=== PATIENT | female | born 1945 | race Caucasian/White ===

== ENCOUNTER 2018-04-06 07:30 | Day surgery (SDC) | payer MEDICARE, OTHER ==
--- NOTE | 2018-04-06 06:35 | History and Physical - Ferro ---
CHIEF COMPLAINT/HISTORY OF CHIEF COMPLAINT: This patient presents with a history of an intractable lumbar radiculopathy. Due to the failure of therapy a spinal cord stimulator trial was conducted on 03/14/18 with a result of 75+% pain control. Due to the failure of all therapy and the success of the trial, the patient presents today for implantation of a permanent system. PAST MEDICAL HISTORY: Hypertension. PAST SURGICAL HISTORY: List to be provided. EMPLOYMENT STATUS: Retired. MEDICATIONS ON ADMISSION: List to be provided. ALLERGIES: ANTIBIOTICS. FAMILY/PSYCHOSOCIAL HISTORY: Social history - Caffeine. Family history - Diabetes, hypertension, and cancer. SYSTEMS REVIEW: The patient seems appropriate in no acute distress. The remainder of the systems review is positive for essential tremors, blood pressure, and degenerative arthritis. PHYSICAL EXAMINATION: Height is 5'4", weight is 215. No vital signs. HEENT: Within normal limits. LUNGS: Clear. HEART: Rapid and regular. ABDOMEN: Nontender. MUSCULOSKELETAL: Examination of the musculoskeletal system shows diffuse tenderness through the lumbar spine. Range of motion does produce pain into both legs across the back surface. Ambulation - No assistive device is utilized. Motor and sensory field evaluation shows no sensory deficits, no motor weakness. There is no assistive device required. NEUROLOGIC: Cranial nerves are intact. IMPRESSION: LUMBAR RADICULOPATHY, ICD-10 CODE M54.16 AND M54.17. PLAN: The patient is here for implant of a spinal cord stimulator after successful trial and the failure of all other therapies. The procedure will be considered outpatient although an overnight stay will be evaluated. JOB NUMBER: [id number] [facility]
[~2018-04-06 07:30] MED LIST: ACETAMINOPHEN 1,000 MG/100 ML BTL IV ONE; CEFAZOLIN 2 Gram 2 GM/50 ML BAG IVPB ONE; FAMOTIDINE 20MG TABLET PO ONE; MECLIZINE 25 MG TABLET PO ONE; METOCLOPRAMIDE 10 MG TABLET PO ONE
[2018-04-06] MEDS ORDERED: MIDAZOLAM HCL 2MG/2ML VIAL IV ONE (07:31)
[2018-04-06] MEDS ORDERED: OXYCODONE/APAP 10MG-325MG TABLET PO ONE (07:31)
[2018-04-06] MEDS ORDERED: 0.9 % SODIUM CHLORIDE 10 ML VIAL IVP ONE (07:31)
[2018-04-06] MEDS ORDERED: FENTANYL PF 100MCG/2ML VIAL IV ONE (07:31)
[2018-04-06] MEDS ORDERED: CEFAZOLIN 1G VIAL IM ONE (07:31)
[2018-04-06] MEDS ORDERED: BUPIVACAINE 0.5% W/EPI MPF 30 ML VIAL IVP ONE (07:31)
[2018-04-06] MEDS ORDERED: PROPOFOL 10 MG/ML VIAL IV ONE (07:31)
[2018-04-06] MEDS ORDERED: LIDOCAINE 2% MDV (20MG/ML) 20ML VIAL IV ONE (07:31)
[2018-04-06] MEDS ORDERED: LIDOCAINE 1% W/EPI 1:200,000 MPF 30ML SQ ONE (07:31)
--- NOTE | 2018-04-07 08:38 | RADIOLOGY REPORT ---
EXAM: THORACIC SPINE HISTORY: PAIN PUMP PLACEMENT. TECHNIQUE: A single AP view of the thoracic spine was performed. FINDINGS: The pain pump stimulator tip is at the T5-T6 level. IMPRESSION: THE PAIN PUMP STIMULATOR TIP IS AT THE T5-T6 LEVEL. JOB NUMBER: [id number] MTDD
--- NOTE | 2018-04-07 20:55 | Operative Note ---
DATE OF SURGERY: 04/06/2018 PREOPERATIVE DIAGNOSIS: INTRACTABLE LUMBAR RADICULOPATHY, ICD-10 CODE = M54.16 AND M54.17. SURGERY: 1. FLUOROSCOPIC-GUIDED EPIDURAL ACCESS LEFT T11-12, PLACEMENT OF SPINAL CORD STIMULATOR LEAD 1, A [employer] IN[employer] 16 WITH 6 ELECTRODES POSITIONED LEFT AT T6. 2. FLUOROSCOPIC-GUIDED EPIDURAL ACCESS LEFT T12-L1, PLACEMENT OF SPINAL CORD STIMULATOR LEAD 2, A [employer] INFINION 16 WITH 6 ELECTRODES POSITIONED RIGHT AT T6. 3. COMPLEX PROGRAMMING OF LEAD 1 OVER 20 MINUTES FOLLOWED BY COMPLEX PROGRAMMING OF LEAD 2 OVER 20 MINUTES. 4. INCISION, SUBCUTANEOUS DISSECTION, AND ANCHORING OF LEAD 1 AND LEAD 2 TO SUPRASPINOUS FASCIA WITH A [employer] LOCKING ANCHOR. 5. INCISION, SUBCUTANEOUS DISSECTION, AND CREATION OF SUBCUTANEOUS POUCH RIGHT POSTERIOR GLUTEAL MARGIN FOR PLACEMENT OF GENERATOR, IDENTIFIED [employer] PROGRAMMABLE, RECHARGEABLE WAVEWRITER. 6. TUNNELING BETWEEN POUCHES. PLACEMENT OF EXTERNAL PORTION OF LEAD 1 AND LEAD 2 INTO GENERATOR POUCH, EACH LEAD INTERFACED TO GENERATOR. 7. CLOSURE OF MIDLINE INCISION USING STRATAFIX SUTURE, #2-0 FASCIA AND #3-0 SKIN, USING STRATAFIX SUTURE AT RIGHT POSTERIOR GLUTEAL MARGIN, #2-0 FASCIA AND #3-0 SKIN. DERMABOND CLOSURE. 8. COMPLEX RECOVERY ROOM PROGRAMMING INTERNAL GENERATOR HOME USE, TWO STIMULATORS, 20 MINUTES. SURGEON: MILENA BYRD D.O. ANESTHESIA: LOCAL SEDATION. ARNAV DUCKWORTH CRNA. INDICATIONS: This patient presents with a history of intractable lumbar radiculopathy. Due to the failure of therapies, a stimulator trial was conducted with 75% to 85% pain control. Due to the failure of other therapy and the success of the trial, the patient presents today for implantation of a permanent system. SURGERY: Intravenous line, vital sign monitoring, IV sedation, prepped and draped sterile technique, under imaging, the epidural interspace from the left at 11-12 and 12-1 were both marked and infiltrated. Using separate curved access Epimed needles with a [id number], the space was accessed. At 11- 12, spinal cord stimulator lead 1, a [employer] Infinion 16 with 6 electrodes position left of midline at T6. With the epidural access at 12-1, spinal cord stimulator lead 2, a [employer] Infinion 16 with 6 electrodes was positioned right at T6. Complex programming of lead 1 over 20 minutes followed by complex programming of lead 2 over 20 minutes resulting in complete patterns of stimulation across the back and into the legs. The patient indicating we had all the areas of the pain. The skin above and below both needles was then infiltrated and an incision made and subcutaneous dissection was conducted to the supraspinous fascia. The needles were removed and then each lead was anchored to the supraspinous fascia with a [employer] locking anchor. At the right posterior gluteal margin, a site picked by the patient for the generator, skin infiltrated, incision made and subcutaneous dissection was conducted to form a pouch of suitable size and depth for the generator. Antibiotic irrigation and Bovie for hemostasis. A tunneling tool was used to carry the leads into the generator pouch and then each lead was interfaced with the generator, a [employer] [place] [email or web address] programmable, rechargeable WaveWriter. Antibiotic irrigation and Bovie for hemostasis. The generator was placed into the pouch. The leads were placed into their own pouch and then both incisions were closed using STRATAFIX suture, #2-0 for fascia and #3-0 for skin. Dermabond closure approximating the edges of both wounds. The patient was transported to the Recovery Room stable. No side-effects from the procedure or the sedation. When fully awake and alert, complex programming of the generator performed over 20 minutes, reestablishing stimulation and pain control to all the appropriate areas. The patient was then instructed on the use of the system and, by her request, prepared for discharge. DISCHARGE INSTRUCTIONS: 1. The sites will remain clean and dry. No showering or bathing in any way that would disrupt dressings. If it happens, contact the Clinic. 2. Standard medications resumed, including the antibiotic Levaquin 500 mg once a day for 14 days. Substitution with Keflex 500 mg four times a day will be provided. 3. The office will contact the patient in 12 to 24 hours to set up a time in 7 to 10 days to evaluate the sites. Until then, she is to keep her activities low. All other instructions provided, numbers to contact if problems given. She was then discharged. She should be monitoring the sites. Do not pull the Dermabond dressing off. Do not replace the Dermabond. If it comes off and the incision is exposed, she should contact the Clinic. cc: Dr. Li JOB NUMBER: [id number] [facility]
== END 2018-04-06 11:15 | disposition home or self-care (01) ==
LOC: SUR 07:30
PROVIDERS: ATTEND Pain Medicine Interventional Pain Medicine
DX: M54.16 Radiculopathy, lumbar region (principal); M54.17 Radiculopathy, lumbosacral region; I10 Essential (primary) hypertension; E78.00 Pure hypercholesterolemia, unspecified; C50.919 Malignant neoplasm of unspecified site of unspecified female breast; E11.9 Type 2 diabetes mellitus without complications; G25.81 Restless legs syndrome
CPT/HCPCS: 63650; 63685; 01936; 95972; 72020; J3010; J0690; C1820; C1883

== ENCOUNTER 2018-07-20 07:48 | Day surgery (SDC) | payer MEDICARE, OTHER ==
[~2018-07-20 07:48] MED LIST changes: -ACETAMINOPHEN 1,000 MG/100 ML BTL IV ONE; -CEFAZOLIN 2 Gram 2 GM/50 ML BAG IVPB ONE
[2018-07-20] MEDS ORDERED: LIDOCAINE 2% MDV (20MG/ML) 20ML VIAL IV ONE (07:49)
[2018-07-20] MEDS ORDERED: MIDAZOLAM HCL 2MG/2ML VIAL IV ONE (07:49)
[2018-07-20] MEDS ORDERED: ONDANSETRON HCL IV 4 MG/2 ML VIAL IVP ONE (07:49)
[2018-07-20] MEDS ORDERED: FENTANYL PF 100MCG/2ML VIAL IV ONE (07:49)
[2018-07-20] MEDS ORDERED: PROPOFOL 10 MG/ML VIAL IV ONE (07:49)
[2018-07-20] MEDS ORDERED: RINGERS SOLUTION,LACTATED 1,000 ML IV ONE (08:29)
[2018-07-20] MEDS ORDERED: RINGERS SOLUTION,LACTATED 350 ML IV ONE (08:39)
[2018-07-20] MEDS ORDERED: LIDOCAINE 1% W/EPI 1:100,000 MDV 20 ML VIAL SQ ONE (09:18)
[2018-07-20] MEDS ORDERED: BUPIVACAINE 0.5% W/EPI MPF 30 ML VIAL SQ ONE (09:19)
[2018-07-20] MEDS ORDERED: DEXAMETHASONE PRESERVATIVE FREE 10MG/ML VIAL SQ ONE (09:19)
--- NOTE | 2018-07-21 11:20 | Operative Note ---
DATE OF SURGERY: 07/20/2018 PREOPERATIVE DIAGNOSIS: Cervical spondylosis without myelopathy, ICD10 code M47.812. OPERATION: Radiofrequency rhizotomy of bilateral cervical facets 4-5, 5-6, 6-7. INDICATIONS: This patient presents with primary neck pain. Examination shows tenderness of the cervical spine. Range of motion does cause pain to the neck with extension. Diagnostic imaging shows extensive end plate spring osteophytic formations. Previous facet series 75% relief. Due to the failure of therapy and the success of the facet series, the patient presents for rhizotomy for more long-term relief. PROCEDURE: Intravenous line, vital sign monitoring, IV sedation, prepped and draped in sterile technique. Under imaging, cervical facets at 4-5, 5-6, 6-7 were identified and marked bilaterally. Skin infiltrated. A 20-gauge rhizotomy cannula positioned. Stimulation trials conducted. Rhizotomy burn performed. Local with antiinflammatory into sites. Topical antibiotic and sterile dressing applied. Will monitor and evaluate. CC: Dr. Guillermo TORREZ
== END 2018-07-20 10:14 | disposition home or self-care (01) ==
LOC: SUR 07:48
PROVIDERS: ATTEND Pain Medicine Interventional Pain Medicine
DX: M47.812 Spondylosis without myelopathy or radiculopathy, cervical region (principal); I10 Essential (primary) hypertension; E11.9 Type 2 diabetes mellitus without complications; K21.9 Gastro-esophageal reflux disease without esophagitis; C50.919 Malignant neoplasm of unspecified site of unspecified female breast; R25.1 Tremor, unspecified; G25.81 Restless legs syndrome
CPT/HCPCS: 64633; 64634 ×2; 01936; 36416; 82948; J2405; J1100; J3010; J7120

== ENCOUNTER 2018-12-28 08:37 | Day surgery (SDC) | payer MEDICARE, OTHER ==
--- NOTE | 2018-12-28 06:59 | History and Physical - Ferro ---
CHIEF COMPLAINT/HISTORY OF CHIEF COMPLAINT: This patient presents with a history of intractable lumbar radiculopathy. Due to the failure of all therapies a spinal cord stimulator trial was conducted with implantation of a permanent system on 03/25/18 and although initially the system appeared to be working well it has gradually failed. Her pattern of pain is a combination of both neck and low back. She is here for an interspinal opioid infusion trial of Hydromorphone to determine if the implantation of a permanent system can be of any value in pain control. PAST MEDICAL HISTORY: Hypertension. PAST SURGICAL HISTORY: List to be provided. MEDICATIONS ON ADMISSION: List to be provided. ALLERGIES: MULTIPLE ANTIBIOTICS. FAMILY/PSYCHOSOCIAL HISTORY: Social history - Caffeine. Family history - Diabetes, hypertension and cancer. SYSTEMS REVIEW: The patient is appropriate in no acute distress. The remainder of the systems review is positive for tremors, blood pressure, and degenerative arthritis. PHYSICAL EXAMINATION: Height is 5'4", weight is 200 pounds. No vital signs. HEENT: Within normal limits. LUNGS: Clear. HEART: Rapid and regular. ABDOMEN: Nontender. MUSCULOSKELETAL: Examination of the musculoskeletal system shows the incisional site for the leads midline and the generator pouch in the posterior gluteal margin identified. Underlying pain pattern neck, shoulder and arm bilaterally. Lower extremity functionality is somewhat limited. Upper extremity motor and sensory functionality shows limited mobility and pain. NEUROLOGIC: Cranial nerves are intact. IMPRESSION: 1. CERVICAL AND LUMBAR RADICULOPATHY, ICD-10 CODE M54.12 AND M54.16. 2. SPINAL CORD STIMULATOR AND INTERNAL GENERATOR, NONFUNCTIONAL. PLAN: The patient is here for an implanted catheter infusion trial of Hydromorphone to determine if we can gain control of the primary pain to low back and secondary pain cervical spine. The implanted catheter will involve an epidural blood patch which will require laying flat for four hours and slowly elevating for one. I am recommending and have instructed the patient that she will be kept overnight for observation, pain control and then discharged in the morning. The potential risks, side effects, and complications have all been carefully reviewed and discussed. Information was given through the code number stamper and interaction with a clinical specialist from [employer] has been provided. JOB NUMBER: [id number] MTDD
[~2018-12-28 08:37] MED LIST changes: +ACETAMINOPHEN 1,000 MG/100 ML BTL IVPB ONE; +CEFAZOLIN 2 Gram 2 GM/50 ML BAG IVPB ONE; +HYDROMORPHONE PF 2MG/ML AMP 0.008 MG in 0.9 % SODIUM CHLORIDE 10ML VIA 0.996 ML IV ONE; +HYDROMORPHONE PF 2MG/ML AMP 8 MG in 0.9 % SODIUM CHLORIDE 500ML 496 ML IV ONE
[2018-12-28] MEDS ORDERED: PROPOFOL 10 MG/ML VIAL IV ONE (08:38)
[2018-12-28] MEDS ORDERED: LIDOCAINE 2% MDV (20MG/ML) 20ML VIAL IV ONE (08:38)
[2018-12-28] MEDS ORDERED: ONDANSETRON HCL IV 4 MG/2 ML VIAL IVP ONE (08:38)
[2018-12-28] MEDS ORDERED: MIDAZOLAM HCL 2MG/2ML VIAL IV ONE (08:38)
[2018-12-28] MEDS ORDERED: FENTANYL PF 100MCG/2ML VIAL IV ONE (08:38)
[2018-12-28] MEDS ORDERED: RINGERS SOLUTION,LACTATED 1,000 ML IV ONE (09:19)
[2018-12-28] MEDS ORDERED: CEFAZOLIN 1G VIAL IR ONE (11:32)
[2018-12-28] MEDS ORDERED: BUPIVACAINE 0.5% W/EPI MPF 30 ML VIAL SQ ONE (11:35)
[2018-12-28] MEDS ORDERED: LIDOCAINE 1% W/EPI 1:100,000 MDV 20 ML VIAL SQ ONE (11:35)
[2018-12-28] MEDS ORDERED: 0.9 % SODIUM CHLORIDE 1000ML 1,000 ML IV ONE (12:35)
[2018-12-28] MEDS ORDERED: HYDROMORPHONE HCL 2 MG/ML VIAL IM PRN ×2 (12:45)
[2018-12-28] MEDS ORDERED: HYDROCODONE/APAP 7.5/325MG TABLET PO PRN ×2 (12:45)
[2018-12-28] MEDS ORDERED: OXYCODONE/APAP 10MG-325MG TABLET PO PRN ×2 (12:45)
[2018-12-28] MEDS ORDERED: RINGERS SOLUTION,LACTATED 1,000 ML IV SCH (12:45)
[2018-12-28] MEDS ORDERED: DIPHENHYDRAMINE HCL 25 MG CAPSULE PO PRN (16:43)
--- NOTE | 2018-12-30 08:01 | Operative Note ---
DATE OF SURGERY: 12/28/2018 PREOPERATIVE DIAGNOSIS: Lumbar radiculopathy, ICD10 code M54.16 and M54.17. OPERATION: 1. Fluoroscopic-guided access spinal space at L2-3, placement of thin-walled spinal catheter T11. 2. Diagnostic myelography with radiologic supervision and interpretation. 3. Spinal opioid bolus hydromorphone 0.004 mg spinal space. 4. Incision, subcutaneous dissection, and anchoring of spinal catheter to supraspinous fascia with an anchoring device and nonabsorbable suture. 5. Incision, subcutaneous dissection, and creation of subcutaneous pouch right posterior gluteal margin for eventual placement of pump. 6. Tunneling between midline pouch and posterior pouch with catheter exiting skin at pouch. 7. Interface catheter with connector and second catheter component, second catheter component tunneled 6 cm superior from flank pouch. 8. Interface external catheter to external pump set to deliver hydromorphone at 0.12 mg a day. 9. Closure of posterior pouch using running nylon. Closure of midline pouch Stratafix suture 2-0 fascia, 3-0 skin, Dermabond closure. 10. Epidural blood patch at L3-4, 20 mL autologous blood, sterile technique, left antecubital. SURGEON: Ayo Izaguirre, ANESTHESIA: Local with sedation. ANESTHESIA PROVIDER: Burton Flores INDICATION: This patient presents with a history of intractable lumbar radiculopathy. Due to the failure of all therapies, she is here for an interspinal catheter placement trial with hydromorphone to determine if the implantation of a permanent system can be of any value in pain control. PROCEDURE: Intravenous line, vital sign monitoring, IV sedation. Prepped and draped in sterile technique. Under imaging, the spinal interspace at L2-3 was identified and marked. Skin infiltrated. There was significant arthritic change and almost incomplete visualization of the space at 5-1 and 4-5. With the skin at L2-3 infiltrated, a 20-gauge spinal needle with bevel at the long axis, paramedian approach, and using AP and lateral imaging, the needle was placed into the midline of the spinal space. With CSF flow, a thin-walled spinal catheter was advanced also under imaging AP and lateral views and positioned T11 midbody. No difficulty, no pain, no response on the part of the patient. Diagnostic myelography was then performed. The resulting flow characteristics were smooth linear in the space. Normal spinal flow characteristics identified. CSF still noted through the catheter. A bolus of hydromorphone 0.004 mg was given. Catheter was clamped to stop CSF leak. The skin above and below the needle infiltrated, incision made, and subcutaneous dissection was conducted to the supraspinous fascia. The needle was removed and the catheter was anchored to the supraspinous fascia with a cartmitronic anchor and nonabsorbable suture. At the right posterior gluteal margin, a site ultimately for the pump picked by the patient, skin infiltrated, incision made, and small subcutaneous pouch formed. The spinal catheter from the midline was then tunneled into this pouch exiting the pouch. The catheter was then interfaced to a second catheter component by way of a connector. This second catheter component was then tunneled 6 cm superior from this spot exiting the skin. The external catheter was interfaced to an external pump set to deliver hydromorphone at 0.12 mg over 24 hours. The flank posterior pouch was closed with a running nylon suture. The midline incision was closed using Stratafix suture, 2-0 fascia, 3-0 skin. Dressing was placed over both incisions and securing the catheter to the patient's back. All connections of the catheter were under sterile dressing. At L3-4, which was one level below the dural puncture, skin infiltrated and an 18-gauge Tuohy needle with loss of resistance was used to gain entry into the epidural space. Simultaneously, 20 mL autologous blood drawn sterile technique from the left antecubital. This sterile blood placed onto the field maintaining sterility, was then used as an epidural blood patch at the L3-4 level. The epidural needle removed. The area was cleaned. Dressings to reinforce the area. She was then transported to the recovery room stable, pillow under head and knees but flat. She was showing nothing new or different. There were no asymmetric findings. No unusual painful functionality extremities. She will be kept flat for 4 hours, slowly elevated for 1, and by her request be discharged to home with the appropriate restrictions. The pump had been started at 0.12 mg. DISCHARGE INSTRUCTIONS: 1. Sites to remain clean and dry. No showering or bathing in any way that would disrupt dressings. If it happens, contact the clinic. 2. Standard medications resume including the antibiotic Keflex 500 mg 4 times a day for 10 days. 3. Office to contact the patient at home to set up her first increase, which will happen either in 2 days or in 4 days. All other instructions provided, numbers to contact if problems given. 4. Spinal opioid side effects of respiratory depression, nausea, vomiting, constipation, urinary retention, lightheadedness, or rash have been reviewed. MTDD
--- NOTE | 2018-12-31 13:50 | RADIOLOGY REPORT ---
DATE: 12/28/2018. EXAM: LUMBAR SPINE, ONE VIEW. HISTORY: PAIN PUMP TRIAL. ENCOUNTER: Not applicable. TECHNIQUE: Single mobile AP of the lumbar spine. COMPARISON: None. FINDINGS: Stimulator is projected over the right mid abdomen. The leads extend into the spinal canal. Electrodes project over the thoracic spine from the T6 level to the T8-T9 disc level. There is disc space loss and osteophytic change in the mid and lower lumbar spine. Facet hypertrophy is also suspected. IMPRESSION: 1. STIMULATOR PLACEMENT OVER THE RIGHT MID ABDOMEN, PROBABLY POSTERIORLY. 2. ELECTRODES DESCRIBED. 3. DEGENERATIVE DISC DISEASE AND DEGENERATIVE FACET DISEASE. Job Number: [id number] MTDD
== END 2018-12-28 17:35 | disposition home or self-care (01) ==
LOC: SUR 08:37 → MEDSURG 13:09 → SUR 17:35
PROVIDERS: ATTEND Pain Medicine Interventional Pain Medicine
DX: M54.16 Radiculopathy, lumbar region (principal); M54.17 Radiculopathy, lumbosacral region; E11.9 Type 2 diabetes mellitus without complications; I10 Essential (primary) hypertension; E78.00 Pure hypercholesterolemia, unspecified; C50.919 Malignant neoplasm of unspecified site of unspecified female breast; G25.81 Restless legs syndrome; R25.1 Tremor, unspecified
CPT/HCPCS: 62350; 62362; 62273; 01936; 36416; 82948; 72020; Q9967; J2405; J3010; J0690; J7030; J7120

== ENCOUNTER 2019-01-04 11:44 | Day surgery (SDC) | payer MEDICARE, OTHER ==
--- NOTE | 2019-01-04 07:20 | History and Physical - Ferro ---
CHIEF COMPLAINT/HISTORY OF CHIEF COMPLAINT: This patient with an ongoing implanted spinal catheter infusion trial of Hydromorphone has had profound itching total body with the infusion. The infusion was stopped for a period of twenty-four to forty-eight hours, the itching had subsided, the infusion was restarted at a 75% reduction in the infused dose and the patient still had profound itching. Due to this she is here for medication change and dressing change only. PAST MEDICAL HISTORY: Unchanged. PAST SURGICAL HISTORY: Unchanged. MEDICATIONS ON ADMISSION: List to be provided. ALLERGIES: MULTIPLE ANTIBIOTICS. FAMILY/PSYCHOSOCIAL HISTORY: Social history - Unchanged. Family history - Unchanged. SYSTEMS REVIEW: The patient is appropriate in no acute distress. PHYSICAL EXAMINATION: Height and weight are not known. Vital signs are not available. HEENT: Within normal limits. LUNGS: Clear. HEART: Rapid and regular. ABDOMEN: Nontender. MUSCULOSKELETAL: Examination of the musculoskeletal system shows the dressings for the implanted catheter to be intact, the external infusion device is infusing appropriately and intact. The device has been turned off. All other findings are consistent with the initial evaluation. IMPRESSION/PLAN: 1. INTRACTABLE LUMBAR RADICULOPATHY, ICD-10 CODE M54.16 AND M54.17. 2. IMPLANTED CATHETER INFUSION TRIAL OF HYDROMORPHONE, SIDE EFFECTS, HERE FOR MEDICATION CHANGE. JOB NUMBER: [id number] MTDD
[~2019-01-04 11:44] MED LIST changes: -ACETAMINOPHEN 1,000 MG/100 ML BTL IVPB ONE; -CEFAZOLIN 2 Gram 2 GM/50 ML BAG IVPB ONE; -FAMOTIDINE 20MG TABLET PO ONE; +FENTANYL CITRATE/PF 5,000 MCG, BUPIVACAINE 0.5% PF 20 MG in 0.9 % SODIUM CHLORIDE 500ML... IJ ONE; +FENTANYL PF 100MCG/2ML VIAL IVP ONE; -HYDROMORPHONE PF 2MG/ML AMP 0.008 MG in 0.9 % SODIUM CHLORIDE 10ML VIA 0.996 ML IV ONE; -HYDROMORPHONE PF 2MG/ML AMP 8 MG in 0.9 % SODIUM CHLORIDE 500ML 496 ML IV ONE; -MECLIZINE 25 MG TABLET PO ONE; -METOCLOPRAMIDE 10 MG TABLET PO ONE
--- NOTE | 2019-01-05 14:41 | Operative Note ---
DATE OF PROCEDURE: 01/04/2019 SUBJECTIVE FINDINGS: This patient was in process of an implanted spinal catheter infusion trial with hydromorphone. During the trial, which was approximately 1 week, she has had profound and total body itching. After 3 days, the pump was turned off, left silent and inactive for 1 day, and then restarted. Almost immediately upon resuming the infusion, she began to have the itching. At that point, it was considered an allergy and the pump was stopped. She was brought in today for medication change. OBJECTIVE FINDINGS: Her vital signs are stable. She was taken into the recovery area. The previous dressings were removed using a sterile technique. The incision at the right posterior gluteal margin was noted and intact. Midline incision for the catheter implant was noted and intact. Using sterile technique, the current infusion of hydromorphone and catheter were from the indwelling spinal catheter at the alligator clip. A new infusion of fentanyl/bupivacaine 10 mcg/mL concentration of fentanyl was then interfaced to the appropriate catheter setup. The catheter was primed and then using a sterile technique, the new catheter infusing the fentanyl/bupivacaine mixture was interfaced to the indwelling spinal catheter at the alligator clip. Sterile dressing was then reapplied securing the catheter and all connections under the sterile dressing. A new pump interfaced to the infusion bag and started at 100 mcg of fentanyl per day. She was then monitored for an appropriate period. The infusion was working properly. She was asymptomatic and was discharged. ASSESSMENT: 1. Intractable lumbar radiculopathy. 2. Spinal infusion system hydromorphone changed to fentanyl/bupivacaine blend. PLAN: As stated, we changed the infusion. We will monitor over the next 24 hours to 48 hours and determine if there are any side effects from the fentanyl/bupivacaine. If not, within the next 48-72 hours, she will have her first increase. She has 7 days before we need to make the decision to either implant or remove the implanted catheter. She tolerated the procedure without difficulty. [facility]
== END 2019-01-04 14:00 | disposition home or self-care (01) ==
LOC: SUR 11:44
PROVIDERS: ATTEND Pain Medicine Interventional Pain Medicine
DX: M54.16 Radiculopathy, lumbar region (principal); T40.2X5A Adverse effect of other opioids, initial encounter

== ENCOUNTER 2019-01-11 09:56 | Day surgery (SDC) | payer MEDICARE, OTHER ==
--- NOTE | 2019-01-11 07:14 | History and Physical - Ferro ---
CHIEF COMPLAINT/HISTORY OF CHIEF COMPLAINT: This patient with a history of intractable lumbar radiculopathy has an implanted spinal catheter infusion trial of Hydromorphone ongoing. Recently the Hydromorphone was changed to Fentanyl Bupivacaine because of side effects in the form of itching. While on the Fentanyl Bupivacaine mixture she has achieved significant pain control and no side effects. She is here for implantation of a permanent system utilizing the Fentanyl Bupivacaine medication. PAST MEDICAL HISTORY: Unchanged. PAST SURGICAL HISTORY: Unchanged. MEDICATIONS ON ADMISSION: Unchanged. ALLERGIES: MULTIPLE ANTIBIOTICS. FAMILY/PSYCHOSOCIAL HISTORY: Social history - Unchanged. Family history - Unchanged. SYSTEMS REVIEW: The patient is appropriate. PHYSICAL EXAMINATION: Height and weight are unchanged. Vital signs are not available. HEENT: Within normal limits. LUNGS: Clear. HEART: Rapid and regular. ABDOMEN: Nontender. MUSCULOSKELETAL: Examination of the musculoskeletal system shows diffuse tenderness throughout the lumbar spine. Range of motion produces pain throughout multiple dermatome distributions into both legs. The dressing for the implanted catheter trial is intact. The external infusion device is in place and functioning. NEUROLOGIC: Cranial nerves are intact. IMPRESSION: 1. INTRACTABLE LUMBAR RADICULOPATHY, ICD-10 CODE M54.16 AND M54.17. 2. IMPLANTED SPINAL CATHETER INFUSION TRIAL OF HYDROMORPHONE. PLAN: With respect to the device trial she has done quite well with Fentanyl Bupivacaine. For that reason she has requested implanted which is happening today. We will implant the device subcutaneously, remove all of the external components, interfacing the pump to the internalized catheter. The procedure will be considered outpatient although an overnight stay will be evaluated. cc: Satinder Adan M.D. JOB NUMBER: [id number] [facility]
[~2019-01-11 09:56] MED LIST changes: +ACETAMINOPHEN 1,000 MG/100 ML BTL IVPB ONE; +BUPIVACAINE HCL IV ONE; +CEFAZOLIN 2 Gram 2 GM/50 ML BAG IVPB ONE; +FAMOTIDINE 20MG TABLET PO ONE; +FENTANYL CITRATE IV ONE; -FENTANYL CITRATE/PF 5,000 MCG, BUPIVACAINE 0.5% PF 20 MG in 0.9 % SODIUM CHLORIDE 500ML... IJ ONE; +MECLIZINE 25 MG TABLET PO ONE; +METOCLOPRAMIDE 10 MG TABLET PO ONE; +[UNRECOGNIZED DRUG - OTHER] IV ONE
[2019-01-11] MEDS ORDERED: *PACU ONLY* KETAMINE HCL 10 MG/ML (20ML) VIAL IV ONE (09:57)
[2019-01-11] MEDS ORDERED: PROPOFOL 10 MG/ML VIAL IV ONE (09:57)
[2019-01-11] MEDS ORDERED: LABETALOL HCL 5MG/ML, 20ML VIAL IV ONE (09:57)
[2019-01-11] MEDS ORDERED: SUFENTANIL CITRATE 50 MCG/ML AMPUL IV ONE (09:57)
[2019-01-11] MEDS ORDERED: MIDAZOLAM HCL 2MG/2ML VIAL IV ONE (09:57)
[2019-01-11] MEDS ORDERED: FENTANYL PF 100MCG/2ML VIAL IV ONE (09:57)
[2019-01-11] MEDS ORDERED: ONDANSETRON HCL IV 4 MG/2 ML VIAL IVP ONE (09:57)
[2019-01-11] MEDS ORDERED: MORPHINE SULFATE 5 MG/ML VIAL IVP ONE (09:57)
[2019-01-11] MEDS ORDERED: LIDOCAINE 2% MDV (20MG/ML) 20ML VIAL IV ONE (09:57)
[2019-01-11] MEDS ORDERED: RINGERS SOLUTION,LACTATED 1,000 ML IV ONE ×2 (10:33→13:00)
[2019-01-11] MEDS ORDERED: LIDOCAINE 1% W/EPI 1:200,000 MPF 30ML SQ ONE (13:15)
[2019-01-11] MEDS ORDERED: CEFAZOLIN 1G VIAL IR ONE (13:16)
[2019-01-11] MEDS ORDERED: BUPIVACAINE 0.5% W/EPI MPF 30 ML VIAL SQ ONE (13:16)
[2019-01-11] MEDS ORDERED: HYDROCODONE/APAP 7.5/325MG TABLET PO ONE (14:15)
--- NOTE | 2019-01-12 09:02 | Operative Note - Ferro ---
DATE OF SURGERY: 01/11/2019 PREOPERATIVE DIAGNOSIS: 1. Lumbar radiculopathy, ICD-10 code M54.16 and M54.17. 2. Two lead spinal cord stimulator and internal generator, nonfunctional. 3. Implant the spinal catheter infusion trial Hydromorphone. OPERATION: 1. FLUOROSCOPICALLY GUIDED INCISION, SUBCUTANEOUS DISSECTION AND REMOVAL OF TWO IMPLANTED SPINAL CORD STIMULATORS. 2. INCISION, SUBCUTANEOUS DISSECTION AND REMOVAL OF SPINAL CORD STIMULATOR INTERNAL PULSE GENERATOR RIGHT POSTERIOR GLUTEAL MARGIN. 3. REMOVAL OF EXTERNAL SPINAL CATHETER AND EXTERNAL PUMP. 4. INCISION, SUBCUTANEOUS DISSECTION AND CREATION OF SUBCUTANEOUS POUCH AT RIGHT POSTERIOR GLUTEAL MARGIN FOR PUMP IDENTIFIED MEDTRONIC 20 ML PROGRAMMABLE. 5. REVISION OF INTERNAL CATHETER AT INCISIONAL POUCH, INTERFACE CATHETER WITH SECOND CATHETER COMPONENT BY WAY OF CONNECTOR, REVISE CATHETER INTERFACED TO PUMP 20 ML PROGRAMMABLE PRE-FILLED WITH FENTANYL AND BUPIVACAINE. 6. PLACEMENT OF PUMP WITH REVISED CATHETER INTO POUCH SECURED TO POSTERIOR FASCIA USING NONABSORBABLE SUTURE THREE POINTS PUMP ISLETS. 7. PLACEMENT OF CURVED 24-GAUGE MCGINNIS NEEDLE INTO ACCESS PORT WITH PUMP IN POUCH, CLEARING CATHETER OF OPIOID AND CSF MIXTURE, 1 ML ASPIRATED. 8. DIAGNOSTIC MYELOGRAPHY WITH RADIOLOGIC SUPERVISION AND INTERPRETATION THROUGH ACCESS PORT DEMONSTRATING CONTRAST MOVING THROUGH PUMP, CONTRAST THROUGH THE PUMP CATHETER CONNECTION WITH NO OBSTRUCTIONS OR LEAKS. NO KINKS. THE TIP OF THE CATHETER AT T12-L1 APPROPRIATE MYELOGRAM FLOW CHARACTERISTICS NOTED CONFIRMING FUNCTIONALITY AND INTEGRITY OF THE SYSTEM. 9. CLOSURE OF PUMP POUCH USING STRATAFIX SUTURE 2-0 FASCIA AND 3-0 SKIN. CLOSURE OF STIMULATOR REMOVAL INCISIONAL SITE USING STRATAFIX SUTURE 2-0 FASCIA AND 3-0 SKIN. DERMABOND CLOSURE OVER ALL SITES. 10. PROGRAMMING OF PUMP TO DELIVER BY CONTINUOUS INFUSION OF FENTANYL AND BUPIVACAINE, FENTANYL AT 175 MCG A DAY. ALARMS ARE RESET. SURGEON: Ayo Izaguirre D.O. ANESTHESIA: Local sedation. ANESTHESIA PROVIDER: Sidra Petersen CRNA INDICATION: This patient presents with a history of intractable lumbar radiculopathy. A two lead spinal cord stimulator and internal generator are nonfunction and an implanted spinal catheter infusion trial with Fentanyl and Bupivacaine with 75-85% pain control. Due to the failure of therapy, she is here for implantation of a permanent pump. Along with we will remove the nonfunctional stimulator and internal generator modifying the generator pouch for implantation of the pump itself. PROCEDURE: Intravenous line, vital sign monitoring, IV sedation. Prepped and draped in sterile technique. Under imaging, the incisions for the two spinal cord stimulator leads was infiltrated, an incision was made and subcutaneous dissection was conducted. The pouch was widened. The stimulator is identified, anchors and suture were removed, and the leads were removed intact. All electrodes are accounted for. Two 16-electrode leads. Antibiotic irrigation, Bovie for hemostasis. At the right posterior gluteal margin generator pouch for the stimulator, the skin was infiltrated, incision was made and subcutaneous dissection was conducted to the pouch. The generator was then exteriorized and removed along with its connections to the two stimulators. Antibiotic irrigation and Bovie for hemostasis. The midline lead pouch was closed with Stratafix suture 2-0 fascia and 3-0 skin. Dermabond closure. The right posterior gluteal margin generator pouch was then widened to accommodate a 20 ml programmable pump. The incision for the externalized catheter was then opened, the external catheter and its interface to the permanent internal catheter was cut and removed by pulling away from the incision. The permanent internal catheter was then revised and resected by way of a connector with a second catheter component that would interface to the pump. Antibiotic irrigation and Bovie for hemostasis at the pump pouch. The pump was then placed onto the field 20 ml programmable pre-filled Fentanyl and Bupivacaine. The revised catheter was then interfaced to the pump. The pump was placed into the pouch and secured to the posterior fascia at three points pump islets using nonabsorbable suture. With the pump in the pouch a 24-gauge Mcginnis needle was inserted into the access port 1ml catheter contents was aspirated clearing catheter of opioid and CSF mixture. Contrast was injected. The myelogram demonstrating appropriate flow characteristics. The catheter had been aspirated 1 ml clearing contents. The pump pouch was then closed using Stratafix suture 2-0 fascia and 3-0 skin and a Dermabond closure to approximate the edge of the wound. The pump was then programmed to deliver by continuous infusion of Fentanyl and Bupivacaine, Fentanyl dose at 175 mcg a day. Alarms were set. Dermabond dressing in place. The patient was transported to the Recovery Room in stable condition. No side effects from the procedure or the sedation. DISCHARGE INSTRUCTIONS: 1. Sites are to remain clean and dry. No showering or bathing in any way that would disruption the dressings, although the the Dermabond will allow showering she should not sit in water. 2. Standard medications resumed including another ten days of the currently taken antibiotic of Levaquin at 500 mg once a day. 3. Office to contact the patient and set up a time in the next 7-10 days for us to evaluate the sites. At that point in time if the incisions are doing well she will be cleared for further activities and the antibiotic will be suspected. 4. Spinal opioid side effects of respiratory depression, nausea, vomiting, constipation, urinary retention, lightheadedness or rash have been discussed and reviewed. She will contact the clinic should there be any side effects or complications. All other instructions were provided. Numbers to contact if problems given. She will be discharged by her request. JOB NUMBER: [id number] MTDD
== END 2019-01-11 14:45 | disposition home or self-care (01) ==
LOC: SUR 09:56
PROVIDERS: ATTEND Pain Medicine Interventional Pain Medicine
DX: M54.16 Radiculopathy, lumbar region (principal); M54.17 Radiculopathy, lumbosacral region; T85.193A Other mechanical complication of implanted electronic neurostimulator, generator, initial encounter; T85.112A Breakdown (mechanical) of implanted electronic neurostimulator of spinal cord electrode (lead), initial encounter; I10 Essential (primary) hypertension; E78.00 Pure hypercholesterolemia, unspecified; E11.9 Type 2 diabetes mellitus without complications; C50.919 Malignant neoplasm of unspecified site of unspecified female breast; E78.5 Hyperlipidemia, unspecified; B00.9 Herpesviral infection, unspecified; G25.81 Restless legs syndrome; K21.9 Gastro-esophageal reflux disease without esophagitis; G25.0 Essential tremor
CPT/HCPCS: 63650; 63685; 01936; 62367; C1755; Q9967; C1776; C1772; J2405; J3010; J0690; J7120

== ENCOUNTER 2019-05-03 05:40 | Day surgery (SDC) | payer MEDICARE, OTHER ==
[2019-05-03] MEDS ORDERED: LIDOCAINE 2% MDV (20MG/ML) 20ML VIAL IV ONE (05:41)
[2019-05-03] MEDS ORDERED: MIDAZOLAM HCL 2MG/2ML VIAL IV ONE (05:41)
[2019-05-03] MEDS ORDERED: FENTANYL PF 100MCG/2ML VIAL IV ONE (05:41)
[2019-05-03] MEDS ORDERED: PROPOFOL 10 MG/ML VIAL IV ONE (05:41)
[2019-05-03] MEDS ORDERED: RINGERS SOLUTION,LACTATED 1,000 ML IV ONE (06:25)
[2019-05-03] MEDS ORDERED: LIDOCAINE 1% W/EPI 1:200,000 MPF 30ML SQ ONE (08:24)
[2019-05-03] MEDS ORDERED: BUPIVACAINE 0.25% PF (2.5MG/ML) 10ML VIAL IM ONE (08:25)
[2019-05-03] MEDS ORDERED: BUPIVACAINE 0.5% W/EPI MPF 30 ML VIAL SQ ONE (08:25)
[2019-05-03] MEDS ORDERED: DEXAMETHASONE PRESERVATIVE FREE 10MG/ML VIAL IM ONE (08:25)
--- NOTE | 2019-05-03 08:56 | Operative Note - [facility] ---
DATE OF SURGERY: 05/03/2019 PREOPERATIVE DIAGNOSIS: LUMBAR RADICULOPATHY, ICD-10 CODE M54.16 AND M54.17. OPERATION: FLUOROSCOPICALLY GUIDED BILATERAL LUMBAR EPIDURAL INJECTION L4-L5. SURGEON: Ayo Izaguirre D.O. ANESTHESIA: Local sedation. ANESTHESIA PROVIDER: Burton Flores CRNA INDICATION: This patient presents with pain which is low back, hip and leg. Diagnostics showed diffuse spondylitic change with near complete disk space collapse at L4-L5. PROCEDURE: Intravenous line, vital sign monitoring, IV sedation, prepped and draped, sterile technique. Under imaging the epidural interspace at L4-L5 was identified and marked bilaterally, skin infiltrated, two separate 17-gauge 5- inch Tuohy needles one left and one right of the midline, atraumatic. No blood. No CSF. Contrast epidurogram at each showing epidural flow characteristics appropriate space. 5 ml of 0.125% Marcaine with Dexamethasone injected first left then right. Both needles removed, back cleaned, topical antibiotic, sterile dressing applied. Will monitor and evaluate. JOB NUMBER: [id number] MTDD
== END 2019-05-03 09:02 | disposition home or self-care (01) ==
LOC: SUR 05:40
PROVIDERS: ATTEND Pain Medicine Interventional Pain Medicine
DX: M54.16 Radiculopathy, lumbar region (principal); M54.17 Radiculopathy, lumbosacral region; E11.9 Type 2 diabetes mellitus without complications; E78.00 Pure hypercholesterolemia, unspecified; I10 Essential (primary) hypertension; D84.9 Immunodeficiency, unspecified; C50.919 Malignant neoplasm of unspecified site of unspecified female breast; G25.0 Essential tremor
CPT/HCPCS: 62323; 01992; Q9967; J1100; J3010; J7120